=== PATIENT | male | born 1975 | race Caucasian/White ===

== ENCOUNTER → 2019-03-02 | Outpatient (CLI) | payer BC, OTHER ==
[~2019-03-02] MED LIST: AMPDEX5 PO; META800 PO; RANI150 PO; Roxicodone5 MG PO; TRAACE PO
[2019-03-02 11:11] LABS: BASOPHILS ABSOLUTE AUTO 0.07 K/mm3 (0.00-0.23); BASOPHILS PERCENT AUTO 1 % (0-2); EOSINOPHILS ABSOLUTE AUTO 0.06 K/mm3 (0.00-0.68); EOSINOPHILS PERCENT AUTO 1 % (0-6); Hematocrit 48.9 % (37.0-53.0); Hemoglobin 17.6 g/dL (13.5-17.5); IMMATURE GRAN ABSOLUTE AUTO 0.01 K/mm3 (0.00-0.10); IMMATURE GRAN PERCENT AUTO 0 % (0-1); LYMPHOCYTES ABSOLUTE AUTO 1.49 K/mm3 (0.84-5.20); LYMPHOCYTES PERCENT AUTO 21 % (21-46); MONOCYTES ABSOLUTE AUTO 0.65 K/mm3 (0.16-1.47); MONOCYTES PERCENT AUTO 9 % (4-13); Mean Corpuscular HGB 31.2 pg (26.0-34.0); Mean Corpuscular Volume 87 fL (80-100); NEUTROPHILS ABSOLUTE AUTO 4.87 K/mm3 (1.96-9.15); NEUTROPHILS PERCENT AUTO 68 % (41-73); Platelet Count 225 K/mm3 (150-400); RDW Coefficient Variation 12.4 % (11.7-14.2); RDW Standard Deviation 38.9 fL (35.1-46.3); Red Blood Cell Count 5.65 M/mm3 (4.30-5.90); White Blood Cell Count 7.15 K/mm3 (4.00-11.30)
== END ==
LOC: LAB EV 11:08 → LAB SHORT 11:08
PROVIDERS: Physician Assistant
DX: M79.605 Pain in left leg (principal)
CPT/HCPCS: 85025

== ENCOUNTER 2021-02-04 07:17 | Day surgery (SDC) | payer BC ==
[~2021-02-04] VITALS: Ht 185.4 cm; Wt 98.4 kg
[2021-02-04] MEDS ORDERED: HYDCHL25 PO (07:55)
--- NOTE | 2021-02-04 08:21 | NUR ---
Ambulatory in Day Surgery. Patient states colon prep results clear. History, Chart, Medications and Allergies reviewed before start of procedure. Lungs clear T/O to Auscultation. Patient confirms NPO status and agrees with scheduled surgery. Patient States Post-Procedure ride home has been arranged.
--- NOTE | 2021-02-04 08:45 | NUR ---
02/04/21 0845 Neela Lee History, Chart, Medications and Allergies reviewed before start of procedure. Patient confirms NPO status and agrees with scheduled surgery.
[2021-02-04] MEDS ORDERED: ONDA4ODT MM (08:56)
[2021-02-04 09:58] LABS: Hematocrit 48.1 % (37.0-53.0); Hemoglobin 17.2 g/dL (13.5-17.5)
--- NOTE | 2021-02-04 10:31 | NUR ---
Discharge instructions reviewed with patient. Patient verbalizes understanding. Copy given to patient to take home. Discharged via wheelchair to private car for ride home.
== END 2021-02-04 10:36 | disposition home or self-care (01) ==
LOC: ORSCMMR 07:17 → ORD 09:30 → ORSCMMR 09:30
PROVIDERS: Surgery
PROC: 0DB98ZX Excision of Duodenum, Via Natural or Artificial Opening Endoscopic, Diagnostic (ICD-10-PCS; principal; 2021-02-04 08:45)
PROC: 0DJD8ZZ Inspection of Lower Intestinal Tract, Via Natural or Artificial Opening Endoscopic (ICD-10-PCS; principal; 2021-02-04 08:45)
PROC: 0DB68ZX Excision of Stomach, Via Natural or Artificial Opening Endoscopic, Diagnostic (ICD-10-PCS; principal; 2021-02-04 08:45)
DX: R10.13 Epigastric pain (principal); K29.70 Gastritis, unspecified, without bleeding; K57.30 Diverticulosis of large intestine without perforation or abscess without bleeding; K64.8 Other hemorrhoids; R10.30 Lower abdominal pain, unspecified; R93.3 Abnormal findings on diagnostic imaging of other parts of digestive tract; Z83.71 Family history of colonic polyps; R10.11 Right upper quadrant pain; K76.0 Fatty (change of) liver, not elsewhere classified; I10 Essential (primary) hypertension; Z87.891 Personal history of nicotine dependence
CPT/HCPCS: 85014; 85018; 88305; 88341; 88342; J2001; J2250; J2704; J7120

== ENCOUNTER 2021-02-14 07:52 | Day surgery (SDC) | payer BC ==
[~2021-02-14] VITALS: Ht 185.4 cm; Wt 105.8 kg
[~2021-02-14 07:52] MED LIST changes: +HYDCHL25 PO; +ONDA4ODT MM
--- NOTE | 2021-02-14 09:01 | NUR ---
[Ambulatory in Day Surgery History, Chart, Medications and Allergies reviewed before start of procedure. Lungs clear T/O to Auscultation. Patient confirms NPO status and agrees with scheduled surgery. Pre-Op teaching done. Pt verbalizes understanding. Patient States Post-Procedure ride home has been arranged.
--- NOTE | 2021-02-14 09:29 | NUR ---
02/14/21 0929 FAUSTINA GROVES History, Chart, Medications and Allergies reviewed before start of procedure. 3-LEAD EKG REVIEWED WITH PHYSICIAN PRIOR TO START OF PROCEDURE. O2 VIA POM INTACT THROUGHOUT SEDATION/PROCEDURE. MONITOR INTACT WITH CONTINUOUS PULSE OXIMETRY AND INTERMITTENT BP. PATIENT DETERMINED TO BE ASA APPROPRIATE FOR PROPOFOL SEDATION PRIOR TO START OF PROCEDURE BY DR. RODRIGUEZ.
--- NOTE | 2021-02-14 10:31 | NUR ---
Patient up to Ambulate independently. Gait steady. Discharge instructions reviewed with patient. Patient verbalizes understanding. Copy given to patient to take home. Discharged via wheelchair to private car for ride home.
[2021-02-14] MEDS ORDERED: SUCR1 PO (10:32)
[2021-02-14] MEDS ORDERED: OMEP20ER (10:32)
== END 2021-02-14 10:23 | disposition home or self-care (01) ==
LOC: ORSCMMR 07:52 → ORD 08:30 → ORSCMMR 09:15
PROVIDERS: Surgery
PROC: 0DB78ZX Excision of Stomach, Pylorus, Via Natural or Artificial Opening Endoscopic, Diagnostic (ICD-10-PCS; principal; 2021-02-14 09:15)
DX: R10.13 Epigastric pain (principal); C16.1 Malignant neoplasm of fundus of stomach; R79.89 Other specified abnormal findings of blood chemistry; R76.8 Other specified abnormal immunological findings in serum; I10 Essential (primary) hypertension
CPT/HCPCS: 88305; 88342; J2250; J2704; J7120

== ENCOUNTER 2021-03-30 05:52 | Day surgery (SDC) | payer BC, SELFPAY ==
[~2021-03-30] VITALS: Ht 185.4 cm; Wt 97.4 kg
[~2021-03-30 05:52] MED LIST changes: +OMEP20ER; +SUCR1 PO
[2021-03-30 08:12] LABS: Alanine Aminotransfer (ALT/SGP 25 U/L (12-78); Albumin, Blood 4.3 g/dL (3.4-5.0); Albumin/Globulin Ratio 1.4 (0.8-1.8); Alk Phos 50 U/L (50-136); Anion Gap 7 mmol/L (6-16); Aspartate Aminotrans (AST/SGOT 17 U/L (12-37); Bilirubin, Total 1.4 mg/dL (0.1-1.0); Blood Urea Nitrogen 13 mg/dL (8-24); Bun/Creatinine Ratio 11.1 (12.0-20.0); CO2, Blood 29 mmol/L (21-32); Calcium, Blood 9.3 mg/dL (8.5-10.1); Chloride, Blood 102 mmol/L (98-108); Creatinine, Blood 1.17 mg/dL (0.60-1.20); Glomerular Filtration Rate >60 (60-); Glucose, Blood 118 mg/dL (70-99); Potassium, Blood 2.9 mmol/L (3.5-5.5); Sodium, Blood 138 mmol/L (136-145); Total Protein, Blood 7.3 g/dL (6.4-8.2)
--- NOTE | 2021-03-30 08:17 | NUR ---
03/30/21 0817 Ila Beck History, Chart, Medications and Allergies reviewed before start of procedure.Patient confirms NPO status and agrees with scheduled surgery.MONITOR INTACT WITH CONTINUOUS PULSE OXIMETRY AND INTERMITTENT BP.See Anesthesia record
--- NOTE | 2021-03-30 11:21 | NUR ---
Patient up to Ambulate independently. Gait steady. Dressing to procedure site clean, dry, intact with no visible drainage, swelling, erythema or bruising noted. Patient States Post-Procedure ride home has been arranged. Discharged via wheelchair to private car for ride home.ALL BELONINGS RETUNED TO PT. DR RODRIGUEZ TO CALL IN SCOPALAMINE PATCH SCRIPT.
--- NOTE | 2021-03-30 11:35 | NUR ---
SCOPOLAMINE PATCH WAS A LATE ENTRY DUE TO NOT SHOWING UP ON EMAR PRIOR TO PT GOING TO SURGERY.
== END 2021-03-30 22:43 | disposition home or self-care (01) ==
LOC: ORSCMMR 05:52 → ORD 07:30 → ORSCMMR 22:43
PROVIDERS: Student in an Organized Health Care Education/Training Program; Surgery
PROC: 3E0G8GC Introduction of Other Therapeutic Substance into Upper GI, Via Natural or Artificial Opening Endoscopic (ICD-10-PCS; principal; 2021-03-30 07:30)
PROC: BF031ZZ Plain Radiography of Gallbladder and Bile Ducts using Low Osmolar Contrast (ICD-10-PCS; principal; 2021-03-30 07:30)
PROC: 0FT44ZZ Resection of Gallbladder, Percutaneous Endoscopic Approach (ICD-10-PCS; principal; 2021-03-30 07:30)
DX: K82.4 Cholesterolosis of gallbladder (principal); R10.13 Epigastric pain; K82.8 Other specified diseases of gallbladder; R10.11 Right upper quadrant pain; D37.1 Neoplasm of uncertain behavior of stomach; I10 Essential (primary) hypertension; Z87.891 Personal history of nicotine dependence; K76.0 Fatty (change of) liver, not elsewhere classified; Z79.899 Other long term (current) drug therapy
CPT/HCPCS: 36415; 74300; 80053; 88304; A9270; C1729; J1100; J1885; J2405; J2704; J3010; J7120

== ENCOUNTER 2022-01-22 16:41 | Emergency (ER) | payer BC ==
[~2022-01-22] VITALS: Ht 185.4 cm; Wt 81.7 kg
[2022-01-22] MEDS ORDERED: ACET120S PR (19:25)
== END 2022-01-22 19:38 | disposition home or self-care (01) ==
LOC: ER 16:41
DX: U07.1 COVID-19 (principal); Z87.891 Personal history of nicotine dependence; Z79.899 Other long term (current) drug therapy; Z88.1 Allergy status to other antibiotic agents; Z88.5 Allergy status to narcotic agent; Z88.0 Allergy status to penicillin; Z85.028 Personal history of other malignant neoplasm of stomach
CPT/HCPCS: 36415; J1885; J7030

== ENCOUNTER 2022-07-11 08:29 | Day surgery (SDC) | payer BC ==
[~2022-07-11] VITALS: Ht 185.4 cm; Wt 88.7 kg
[~2022-07-11 08:29] MED LIST changes: +ACET120S PR; +Bentyl10 MG/ML PO; +FLUO10 PO; -OMEP20ER; +OMEP20ER PO
--- NOTE | 2022-07-11 11:22 | NUR ---
Ambulatory in Day Surgery History, Chart, Medications and Allergies reviewed before start of procedure. Pre-Op teaching done. Pt verbalizes understanding. Patient States Post-Procedure ride home has been arranged.
--- NOTE | 2022-07-11 17:40 | NUR ---
Patient up to Ambulate independently. Gait steady. Discharge instructions reviewed with patient. Patient verbalizes understanding. Copy given to patient to take home. Dressing to procedure site clean, dry, intact with no visible drainage, swelling, erythema or bruising noted. Discharged via wheelchair to private car for ride home.
== END 2022-07-11 22:54 | disposition home or self-care (01) ==
LOC: ORSCMMR 08:29 → ORD 10:00 → ORSCMMR 10:00
PROVIDERS: Surgery
PROC: 3E0M45Z Introduction of Adhesion Barrier into Peritoneal Cavity, Percutaneous Endoscopic Approach (ICD-10-PCS; principal; 2022-07-11 10:30)
PROC: 8E0W4CZ Robotic Assisted Procedure of Trunk Region, Percutaneous Endoscopic Approach (ICD-10-PCS; principal; 2022-07-11 10:30)
PROC: 0YUA4JZ Supplement Bilateral Inguinal Region with Synthetic Substitute, Percutaneous Endoscopic Approach (ICD-10-PCS; principal; 2022-07-11 10:30)
DX: K40.20 Bilateral inguinal hernia, without obstruction or gangrene, not specified as recurrent (principal); D17.6 Benign lipomatous neoplasm of spermatic cord; Z87.891 Personal history of nicotine dependence; K76.0 Fatty (change of) liver, not elsewhere classified; Z79.899 Other long term (current) drug therapy
CPT/HCPCS: 49650; S2900; A9270; C1781; J1100; J2250; J2405; J2704; J2795; J3010; J7120